=== PATIENT | male | born 1980 | race Caucasian/White ===

== ENCOUNTER 2019-04-25 11:13 | Inpatient (IN) | payer OTHER ==
[~2019-04-25] VITALS: Ht 175.3 cm; Wt 72.6 kg
--- NOTE | 2019-04-25 11:25 | NUR ---
PACIENTE ALERTA Y ORIENTADO EN LAS CARLI ESFERAS, VERBALIZA DOLOR EN EL ANO DESDE HACE APROXIMADAMENTE 2 VALENTIN. NIEGA SANGRADO. SE COLOCA EN AREA DE OBSERVACION PARA EVALUACION MEDICA.
--- NOTE | 2019-04-25 12:16 | NUR ---
MR DIAZ ORIENTA A PACIENTE SOBRE ORDENES MEDICAS, CANALIZA VENA Y ADMINISTRA MEDICAMENTO. MRS MARKIE ASISTE A DR PINO EN EXAMEN RECTAL.
--- NOTE | 2019-04-25 16:31 | NUR ---
SE ORIENTA AL PACIENTE SOBRE MUESTRAS A SER COLECTADAS LISSET ORDEN MEDICA. PACIENTE REFIERE ENTENDER. SE COLECTAN LAS MUSTRAS UTILIZANDO MEDIDAS ASEPTICAS Y SE ENVIAN AL LABORATORIO. PACIENTE PENDIENTE A COLECTAR MUESTRA DE ORINA.
--- NOTE | 2019-04-25 16:34 | NUR ---
SE ORIENTA AL PACIENTE SOBRE MUESTRAS A SER COLECTADAS LISSET ORDEN Y PACIENTE REFIERE ENTENDER. SE COLECTAN LAS MUESTRAS UTILIZANDO MEDIDAS ASEPTICAS Y SE ENVIAN AL LABORATORIO. SE ORIENTA SOBRE XRAY Y PACIENTE REFIERE ENTENDER. PACIENTE PENDIENTE A ENTREGAR MUESTRA DE ORINA.
--- NOTE | 2019-04-25 23:29 | NUR ---
SE RECIBE PACIENTE DE TURNO ANTERIODR.EN CAMA CON LAS BARANDAS ELEVADAS. ESTA ALERTA Y ORIENTADA.RESPIRANDO SIN DIFICULTAD.AREA DE VENOPUNCION ESTA LIMPIA Y SECA,AXEL DE EDEMA. ES ORIENTADA SOBRE PROCEDIMIENTOS A LLEVARSE A CABO,LO CUAL REFIERE COMPRENDER.ES MANTENIDA CON CABEZERA A 45 GRADOS,BARANDAS ELEVADAS,TIMBRE ACCESIBLE Y EN OBSERVACION CONSNTANTE POR CAMBIOS EN CONDICION.
--- NOTE | 2019-04-26 07:24 | NUR ---
PACIENTE ALERTA Y ORIENTADO, SONOLIENTO, CON CANALIZACION PATENTE EN MANO RT BAJANDO 0.9NSS A 125ML/HR AXEL DE EDEMA Y ERITEMA. AL MOMENTO NO REFIERE DOLOR, SE ORIENTA SOBRE TRATAMIENTO ORDENADO,SE OBSERVA POR CAMBIOS.
--- NOTE | 2019-04-26 07:35 | NUR ---
DR.NICOLAS BLACKMON EVALUA A PACIENTE.
[2019-04-27] MEDS ORDERED: FLAGYL500MG PO (11:11)
[2019-04-27] MEDS ORDERED: CIPRO500 MG PO (11:11)
[2019-04-27] MEDS ORDERED: PERCOCET 5-3251 EACH PO (11:12)
== END 2019-04-27 13:08 | disposition home or self-care (01) | DRG 349 ==
LOC: ER 11:13 → O/R 04-26 07:49 → SEC-K 04-26 07:49 → O/R 04-26 08:51 → SURH 04-26 11:18
PROVIDERS: ADMIT Surgery
PROC: 0DQQ0ZZ Repair Anus, Open Approach (ICD-10-PCS; 2019-04-26)
PROC: 3E0T3BZ Introduction of Anesthetic Agent into Peripheral Nerves and Plexi, Percutaneous Approach (ICD-10-PCS; 2019-04-26)
PROC: 0D9Q0ZZ Drainage of Anus, Open Approach (ICD-10-PCS; 2019-04-26)
PROC: 0DBQ0ZZ Excision of Anus, Open Approach (ICD-10-PCS; principal; 2019-04-26 08:00)
DX: K60.3 Anal fistula (principal); K62.89 Other specified diseases of anus and rectum

== ENCOUNTER 2019-07-26 06:20 | Day surgery (SDC) | payer OTHER ==
[~2019-07-26 06:20] MED LIST: CIPRO500 MG PO; FLAGYL500MG PO; PERCOCET 5-3251 EACH PO
[2019-07-26] MEDS ORDERED: COLACE100 MG PO (11:54)
[2019-07-26] MEDS ORDERED: PERCOCET 5-3251 EACH PO (11:54)
== END 2019-07-26 14:40 | disposition home or self-care (01) ==
LOC: CIR.AMB 06:20
DX: K60.3 Anal fistula (principal)

== ENCOUNTER 2021-01-06 13:23 | Emergency (ER) | payer OTHER ==
[~2021-01-06] VITALS: Ht 172.7 cm; Wt 70.3 kg
[~2021-01-06 13:23] MED LIST changes: +COLACE100 MG PO
[2021-01-06] MEDS ORDERED: CIPRO500 MG PO (17:39)
[2021-01-06] MEDS ORDERED: PEPCID AC20 MG PO (17:39)
== END 2021-01-06 17:44 | disposition home or self-care (01) ==
LOC: ER 13:23
DX: K52.9 Noninfective gastroenteritis and colitis, unspecified (principal)

== ENCOUNTER 2021-01-29 15:31 | Emergency (ER) | payer OTHER ==
[~2021-01-29] VITALS: Ht 172.7 cm; Wt 71.7 kg
[~2021-01-29 15:31] MED LIST changes: +PEPCID AC20 MG PO
[2021-01-29] MEDS ORDERED: DICLOFENAC SODI75 MG PO (19:41)
== END 2021-01-29 19:45 | disposition home or self-care (01) ==
LOC: ER 15:31
DX: S02.2XXB Fracture of nasal bones, initial encounter for open fracture (principal); Y08.89XA Assault by other specified means, initial encounter; Y93.89 Activity, other specified; Y92.89 Other specified places as the place of occurrence of the external cause

== ENCOUNTER 2022-11-14 16:45 | Emergency (ER) | payer OTHER ==
[~2022-11-14] VITALS: Ht 172.7 cm; Wt 72.6 kg
[~2022-11-14 16:45] MED LIST changes: +DICLOFENAC SODI75 MG PO
== END 2022-11-14 20:17 | disposition home or self-care (01) ==
LOC: ER 16:45
DX: M62.830 Muscle spasm of back (principal)